=== PATIENT | female | born 1985 | race Caucasian/White ===

== ENCOUNTER 2017-03-22 18:47 | Emergency (ER) | payer BC ==
[2017-03-22] MEDS ORDERED: DIPH,PERTUS(ACELL)TETVAC-LF 0.5 ML VIAL IM ONE (19:18)
--- NOTE | 2017-03-22 19:21 | ED ---
General Adult HPI - General Chief complaint: Animal Bite Stated complaint: Dog bite Time Seen by Provider: 03/22/17 19:14 Source: patient, family, RN notes reviewed Mode of arrival: ambulatory Limitations: no limitations - History of Present Illness Initial comments: 31-year-old female presents to the emergency department with a chief complaint of right wrist and hand dog bite. Patient states she was bit by her dog. The dog is up-to-date immunizations. She does not recall her last tetanus. She states that she does have some abrasions to her right wrist. She states that it hurts to move her thumb at the base of it. She denies any numbness and tingling or any other injuries.Patient denies any recent fever, chills, shortness of breath, chest pain, back pain, abdominal pain, nausea vomiting, numbness or tingling, dysuria or hematuria, constipation or diarrhea, headaches or visual changes, or any other current symptoms. - Related Data Home Medications Medication Instructions Recorded Confirmed Aspirin/Acetaminophen/Caffeine 1 - 2 tab PO Q6H PRN 03/22/17 03/22/17 [Excedrin Migraine Caplet] Hyoscyamine Sulfate [Levsin-Sl] 0.125 mg SL BID PRN 03/22/17 03/22/17 Ibuprofen 200 - 400 mg PO Q6H PRN 03/22/17 03/22/17 Naproxen Sodium [Aleve] 220 mg PO BID PRN 03/22/17 03/22/17 Norethindrone-Ethinyl Estrad 1 tab PO HS 03/22/17 03/22/17 [Necon 0.5-35-28 Tablet] Venlafaxine HCl [Effexor] 25 mg PO DAILY 03/22/17 03/22/17 Previous Rx's Medication Instructions Recorded Amoxicillin/Potassium Clav 1 tab PO Q12HR #20 tab 03/22/17 [Augmentin 875-125 Tablet] Allergies Allergy/AdvReac Type Severity Reaction Status Date / Time latex Allergy Anaphylaxis Verified 03/22/17 19:25 Review of Systems ROS Statement: Those systems with pertinent positive or pertinent negative responses have been documented in the HPI. ROS Other: All systems not noted in ROS Statement are negative. Past Medical History Past Medical History: Asthma History of Any Multi-Drug Resistant Organisms: None Reported Past Surgical History: Adenoidectomy, Tonsillectomy Past Psychological History: Anxiety Smoking Status: Never smoker Past Alcohol Use History: Occasional Past Drug Use History: None Reported General Exam - General Exam Comments Initial Comments: General: The patient is awake and alert, in no distress, and does not appear acutely ill. Neck: The neck is supple, there is no tenderness. Cardiovascular: There is a regular rate and rhythm. No murmur, rub or gallop is appreciated. Respiratory: Lungs are clear to auscultation, respirations are non-labored, breath sounds are equal. No wheezes, stridor, rales, or rhonchi. Musculoskeletal: Sensation intact with 2+ pulses at the right upper extremity. Fund motion of right wrist and right hand. Patient does have pain with movement of the right digit. She has multiple small abrasions that appear to be puncture wounds from most likely the dog's teeth to the right forearm and to the right thumb area. Neurological: CN II-XII intact, There are no obvious motor or sensory deficits. Coordination appears grossly intact. Speech is normal. Skin: Skin is warm and dry and no rashes or lesions are noted. Psychiatric: Normal mood and affect. Limitations: no limitations Course Vital Signs 03/22/17 19:04 Temperature 98.6 F Pulse Rate 102 H Respiratory 22 Rate Blood Pressure 145/101 O2 Sat by Pulse 98 Oximetry Medical Decision Making - Medical Decision Making 31-year-old female presents for dog bite to the right hand. This time x-rays are reviewed and negative. We will start patient antibiotics. The area was thoroughly cleaned and bandaged. We did discuss follow-up and return parameters all questions. Patient stated that she understood and she is given this plan. She will be discharged. - Radiology Data Radiology results: report reviewed, image reviewed Disposition Clinical Impression: Dog bite of right wrist Disposition: HOME SELF-CARE Condition: Stable Instructions: Animal Bite (ED) Additional Instructions: Please use medication as discussed. Please follow up with family doctor if symptoms have not improved over the next two days. Please return to the emergency room if your symptoms increase or worsen or for any other concerns. Prescriptions: Amoxicillin/Potassium Clav [Augmentin 875-125 Tablet] 1 tab PO Q12HR #20 tab Referrals: Giulia Bullock DO [Primary Care Provider] - 1-2 days Time of Disposition: 19:41
--- NOTE | 2017-03-22 19:40 | XR ---
EXAMINATION TYPE: XR hand complete RT DATE OF EXAM: 03/22/2017 COMPARISON: NONE HISTORY: Dog bite. Pain. TECHNIQUE: 3 views FINDINGS: I see no fracture nor dislocation. Joint spaces are normal. IMPRESSION: Normal right hand
--- NOTE | 2017-03-22 19:41 | XR ---
EXAMINATION TYPE: XR forearm RT DATE OF EXAM: 03/22/2017 COMPARISON: NONE HISTORY: Dog bite. Pain. TECHNIQUE: 2 views FINDINGS: There is some soft tissue swelling on the dorsum of the distal ulna. I see no fracture nor dislocation. IMPRESSION: Soft tissue swelling right no fracture seen.
[2017-03-22 20:55] VITALS: BP 122/60; PULSE 89; RESP 18; TEMP 97.2
== END 2017-03-22 20:53 | disposition home or self-care (01) ==
LOC: EC 18:47
DX: S61.551A Open bite of right wrist, initial encounter (principal); F41.9 Anxiety disorder, unspecified; Z23 Encounter for immunization; Z79.899 Other long term (current) drug therapy; Z79.3 Long term (current) use of hormonal contraceptives; Z91.040 Latex allergy status; W54.0XXA Bitten by dog, initial encounter
CPT/HCPCS: 90471; 90715; 99283

== ENCOUNTER 2017-06-02 12:07 | Day surgery (SDC) | payer BC ==
[2017-05-31 11:24] VITALS: BMI 32.3
[~2017-06-02 12:07] MED LIST: LACTATED RINGERS 1,000 ML IV SCH
[2017-06-02 13:00] VITALS: TEMP 98.1
[2017-06-02] MEDS ORDERED: LIDOCAINE 1% 20 ML VIAL (10MG/ML) FOR IV START INTRADERMA ONE (13:17)
[2017-06-02 13:22] LABS: Glucose,Whole Blood 84 mg/dL (75-99)
[2017-06-02] MEDS ORDERED: PROPOFOL 10 MG/ML 20 ML VIAL IV ONE (14:11)
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
--- NOTE | 2017-06-02 14:28 | P.OP ---
Date of Procedure: 06/02/17 Preoperative Diagnosis: GI bleed Postoperative Diagnosis: Internal and external hemorrhoids Procedure(s) Performed: Colonoscopy Anesthesia: MAC Surgeon: Fred Bridges Pathology: none sent Condition: stable Disposition: PACU Description of Procedure: The patient's placed on the endoscopy table in the lateral position. She received IV sedation. Digital rectal exam was performed which revealed internal /external hemorrhoids. The flexible colonoscope was then placed patient anus passed throughout the entire colon. The ileocecal valve was visualized. Cecum , ascending and transverse colon appeared normal. The descending; was normal. Scope summer back the rectum and this appeared normal. Scope was retroflexed and there were some internal hemorrhoids noted. Scope was withdrawn for patient.
[2017-06-02 14:31] VITALS: RESP 16
[2017-06-02 14:44] VITALS: BP 120/84; PULSE 61
== END 2017-06-02 15:25 | disposition home or self-care (01) ==
LOC: ORWHC2ENDO 12:07
PROVIDERS: ATTEND Surgery
DX: K50.911 Crohn's disease, unspecified, with rectal bleeding (principal); K64.4 Residual hemorrhoidal skin tags; K64.8 Other hemorrhoids; E16.2 Hypoglycemia, unspecified; J45.909 Unspecified asthma, uncomplicated; Z79.3 Long term (current) use of hormonal contraceptives; Z79.899 Other long term (current) drug therapy; Z91.040 Latex allergy status
CPT/HCPCS: 81025; 45378; J2704

== ENCOUNTER → 2021-12-23 | Outpatient (CLI) | payer BC ==
--- NOTE | 2021-12-23 09:46 | USB ---
Reason for Exam: Follow-up at short interval from prior study. Patient History: Menarche at age 15. Patient has no children. Currently using Hormonal Contraceptives, beginning at age 17 for 7 years. Risk Values: Zelda 5 year model risk: 0.4%. NCI Lifetime model risk: 10.3%. Prior Study Comparison: 12/25/2009 Bilateral Diagnostic Mammogram, [facility]. Findings: The lower outer quadrant of the right breast, the axilla of the right breast and the retroareolar of the right breast were scanned. Targeted ultrasound right breast shows tiny residual 9 x 2 x 4 mm thin-walled cyst at 7 o'clock position 4 cm distance from nipple at site of prior larger cyst that was aspirated in the interval. There is a 2.2 x 0.9 x 2.6 cm thin-walled cyst 8:00 position 9 cm distance from nipple in the deeper tissue redemonstrated not significantly changed from prior study. There is 8 x 5 x 10 mm thin-walled oval cyst at 9:00 position 2 cm distance from nipple redemonstrated not significantly changed from prior study. Overall Assessment: Benign, BI-RAD 2 Management: Screening Mammogram of both breasts at age 39. Patient has occasional brown nipple discharge on manipulation. Advise clinical management. Advise further workup if discharge becomes spontaneous and/or bloody. Electronically signed and approved by: Eliud Kate M.D.
== END | disposition home or self-care (01) ==
LOC: RADUSWWP 08:50
PROVIDERS: ATTEND Surgery
DX: N60.01 Solitary cyst of right breast (principal)

== ENCOUNTER → 2022-01-06 | Outpatient (CLI) | payer BC ==
[2022-01-06 15:57] VITALS: BP 133/77; PULSE 82; RESP 18; TEMP 98.3
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
--- NOTE | 2022-01-07 07:19 | MM ---
Reason for Exam: Clinical finding. Last mammogram was performed 12 year(s) and 1 month(s) ago. Patient History: Menarche at age 15. Patient has no children. Currently using Hormonal Contraceptives, beginning at age 17 for 7 years. Risk Values: Zelda 5 year model risk: 0.4%. NCI Lifetime model risk: 10.3%. Prior Study Comparison: 12/25/2009 Bilateral Diagnostic Mammogram, [facility]. Tissue Density: Left: The breast tissue is extremely dense which could obscure a lesion on mammography. Findings: Analyzed By CAD. There is a focal asymmetry in the left breast posterior depth lateral breast similar around 3:00. This area measures approximately 20 mm. Overall Assessment: Incomplete: need additional imaging evaluation, BI-RAD 0 Management: Diagnostic Breast Ultrasound of the left breast. Please scan the left breast 12-6 o'clock. A clinical breast exam by your physician is recommended on an annual basis and results should be correlated with mammographic findings. This exam should not preclude additional follow-up of suspicious palpable abnormalities. Results were given to the patient verbally at the time of exam. Electronically signed and approved by: Anbial Roche DO
== END ==
LOC: WWCWWP 15:44
PROVIDERS: ATTEND Surgery
DX: N63.0 Unspecified lump in unspecified breast (principal); Z88.7 Allergy status to serum and vaccine; Z91.040 Latex allergy status
CPT/HCPCS: 77061; 77065

== ENCOUNTER → 2022-01-07 | Outpatient (CLI) | payer BC ==
--- NOTE | 2022-01-07 15:12 | USB ---
Reason for Exam: Additional evaluation requested from abnormal screening. Patient History: Menarche at age 15. Patient has no children. Currently using Hormonal Contraceptives, beginning at age 17 for 7 years. Risk Values: Zelda 5 year model risk: 0.4%. NCI Lifetime model risk: 10.3%. Technique: Method: Targeted. Prior Study Comparison: 12/25/2009 Bilateral Diagnostic Mammogram, [facility]. 01/06/2022 Left MG 3D diag mammo w/cad LT, [facility]. Findings: The upper outer quadrant of the left breast, the lower outer quadrant of the left breast, the axilla of the left breast and the retroareolar of the left breast were scanned. 2 cysts noted left breast all measuring 3.1 x 1.0 cm and 1.3 x 0.9 cm. No solid mass is detected. Overall Assessment: Benign, BI-RAD 2 Management: Screening Mammogram of both breasts at age 39. A clinical breast exam by your physician is recommended on an annual basis and results should be correlated with mammographic findings. This exam should not preclude additional follow-up of suspicious palpable abnormalities. Results were given to the patient verbally at the time of exam. Electronically signed and approved by: Leon Cardozo M.D. Radiologis
== END | disposition home or self-care (01) ==
LOC: RADUSWWP 14:42
PROVIDERS: ATTEND Surgery
DX: R92.8 Other abnormal and inconclusive findings on diagnostic imaging of breast (principal)

== ENCOUNTER 2022-01-11 07:17 | Day surgery (SDC) | payer BC ==
[~2022-01-11 07:17] MED LIST changes: +HEPARIN SODIUM,PORCINE/PF 5,000 UNIT/0.5 ML SYRINGE SQ PRN; -LACTATED RINGERS 1,000 ML IV SCH; +Pre Op ABX Message 1 EACH MISC MISCELLANE ONE
[2022-01-11 07:42] VITALS: RESP 16
[2022-01-11] MEDS ORDERED: LIDOCAINE 1% INJ 10MG/ML (20 ML MDV) ONE (07:52)
[2022-01-11] MEDS ORDERED: ONDANSETRON 4 MG/2 ML VIAL ONE (07:52)
[2022-01-11] MEDS ORDERED: LACTATED RINGERS 1,000 ML IV ONE (08:00)
[2022-01-11 08:02] LABS: Glucose,Whole Blood 106 mg/dL (70-110)
[2022-01-11] MEDS ORDERED: ONDANSETRON 4 MG/2 ML VIAL IVP ONE ×2 (08:13→08:19)
[2022-01-11] MEDS ORDERED: DEXAMETHASONE SOD PHOSPHATE 4 MG/ML 1 ML VIAL IVP ONE (08:13)
[2022-01-11] MEDS ORDERED: MIDAZOLAM 2 MG/2 ML VIAL IVP ONE (08:13)
[2022-01-11] MEDS ORDERED: LIDOCAINE 1% (10MG/ML) FOR IV START INTRADERMA PRN (08:19)
[2022-01-11] MEDS ORDERED: HYDROmorphone 0.5 MG/0.5 ML SYRINGE IVP PRN (08:19)
[2022-01-11] MEDS ORDERED: LACTATED RINGERS 1,000 ML IV SCH (08:19)
[2022-01-11] MEDS ORDERED: DEXAMETHASONE SOD PHOSPHATE 4 MG/ML 1 ML VIAL IV ONE (08:19)
[2022-01-11] MEDS ORDERED: MIDAZOLAM 2 MG/2 ML VIAL ONE (08:38)
[2022-01-11] MEDS ORDERED: LIDOCAINE 2% INJ 20 MG/ML (2 ML VIAL) ONE (08:38)
[2022-01-11] MEDS ORDERED: PHENYLEPHRINE-0.9% NACL SYG 1,000 MCG/10 ML SYRINGE ONE (08:38)
[2022-01-11] MEDS ORDERED: fentaNYL (PF) 50 MCG/ML 2 ML AMP ONE (08:38)
[2022-01-11] MEDS ORDERED: PROPOFOL 10 MG/ML 20 ML VIAL IV ONE (08:38)
[2022-01-11] MEDS ORDERED: SUCCINYLCHOLINE CHLORIDE 200 MG/10 ML VIAL IV ONE (08:38)
[2022-01-11] MEDS ORDERED: LIDOCAINE 2% INJ 20 MG/ML SQ ONE ×2 (09:13→09:53)
--- NOTE | 2022-01-11 09:57 | P.OP ---
Date of Procedure: 01/11/22 Preoperative Diagnosis: Bloody nipple discharge right breast Postoperative Diagnosis: Same Procedure(s) Performed: Right breast a duct exploration Anesthesia: FARA Surgeon: Jennyfer Malin Estimated Blood Loss (ml): 10 IV fluids (ml): 500 Pathology: other (breast tissue) Condition: stable Disposition: same day Indications for Procedure: Bloody nipple discharge right breast Operative Findings: Dilated duct right breast Description of Procedure: Patient was taken to the operating room and following induction of anesthesia the right breast was prepped and draped in a sterile fashion. A periareolar incision was made down into the breast tissue. The dissection was performed to the dilated duct under the nipple and circumferential dissection was performed from the area under the nipple down to the chest wall. The specimen was removed and painted for orientation. Titanium clips were placed. The wound was well irrigated. Hemostasis was attained using electrocautery device. The deep ti ssues were closed using 3-0 Vicryl suture. Surgicel in powder from was placed. This is followed by closure of the subcutaneous tissue with 3-0 Vicryl suture. The skin was closed using a 4-0 Monocryl. Steri-Strips were applied. 2% lidocaine 10 mL was used to anesthetize the area of concern. The patient tolerated the procedure in stable condition.
--- NOTE | 2022-01-11 09:59 | P.DS ---
Providers Attending physician: Jenynfer Malin Primary care physician: Vianey Wilson Plan - Discharge Summary Discharge Rx Participant: No New Discharge Prescriptions: No Action Loratadine [Claritin] 10 mg PO DAILY Albuterol Inhaler [Ventolin Hfa Inhaler] 1 puff INHALATION RT-TID lamoTRIgine [LaMICtal] 100 mg PO HS Topiramate 100 mg PO DAILY Montelukast Sodium [Singulair] 10 mg PO DAILY Losartan Potassium 50 mg PO DAILY Fluticasone Propionate [Fluticasone Propionate Hfa 110 MCG (Inhaler)] 12 gm IH DAILY QUEtiapine FUMARATE 25 mg PO HS Jolessa 1 tab PO DAILY Discharge Medication List Albuterol Inhaler [Ventolin Hfa Inhaler] 1 puff INHALATION RT-TID 10/22/21 [History] Fluticasone Propionate [Fluticasone Propionate Hfa 110 MCG (Inhaler)] 12 gm IH DAILY 10/22/21 [History] Jolessa 1 tab PO DAILY 10/22/21 [History] Loratadine [Claritin] 10 mg PO DAILY 10/22/21 [History] Losartan Potassium 50 mg PO DAILY 10/22/21 [History] Montelukast Sodium [Singulair] 10 mg PO DAILY 10/22/21 [History] Topiramate 100 mg PO DAILY 10/22/21 [History] lamoTRIgine [LaMICtal] 100 mg PO HS 10/22/21 [History] QUEtiapine FUMARATE 25 mg PO HS 01/07/22 [History] Follow up Appointment(s)/Referral(s): Jennyfer Malin MD [STAFF PHYSICIAN] - 01/21/22 3:40 pm Activity/Diet/Wound Care/Special Instructions: do not drive until seen by Dr. Frances may shower after 48 hours wear bra at all times Discharge Disposition: HOME SELF-CARE
[2022-01-11 10:26] VITALS: TEMP 97
[2022-01-11] MEDS ORDERED: HYDROmorphone 0.5 MG/0.5 ML SYRINGE IVP ONE (10:30)
[2022-01-11 12:28] VITALS: BP 119/85; PULSE 83
== END 2022-01-11 12:35 | disposition home or self-care (01) ==
LOC: OR 07:17
PROVIDERS: ATTEND Surgery
DX: N64.52 Nipple discharge (principal); I10 Essential (primary) hypertension; J45.909 Unspecified asthma, uncomplicated; F41.9 Anxiety disorder, unspecified; Z91.040 Latex allergy status; Z79.899 Other long term (current) drug therapy; Z90.89 Acquired absence of other organs
CPT/HCPCS: 19120; 81025; J2001 ×2; J2250; J0330; J1100; J2405; J3010; J2370; J2704; J1170; J1644; 88307

== ENCOUNTER → 2022-01-21 | Outpatient (CLI) | payer BC ==
[2022-01-21 16:36] VITALS: BP 112/72; PULSE 92; RESP 16; TEMP 98.2
--- NOTE | 2022-01-21 16:40 | P.PN ---
Progress Note - Text Progress Note Date: 01/21/22 Patient is status post left breast lumpectomy on 01-11-22. Pathology revealed intraductal papilloma focally closely approximating posterior/superior margin. Postoperatively the patient was done well Examination: Incision clean and dry Plan: Repeat right breast mammogram in 6 months time with physician exam at that time CC: Dr. Vianey Wilson
== END | disposition home or self-care (01) ==
LOC: WWCWWP 15:48
PROVIDERS: ATTEND Surgery
DX: Z53.9 Procedure and treatment not carried out, unspecified reason (principal)